=== PATIENT | male | born 2000 | race Caucasian/White ===

== ENCOUNTER 2024-09-25 07:07 | Day surgery (SDC) | payer OTHER ==
[~2024-09-25] VITALS: Ht 185.4 cm; Wt 92.4 kg
[~2024-09-25 07:07] MED LIST: IBUP200C25 PO
[2024-09-25] MEDS ORDERED: LR 1,000 ML IV SCH (07:35)
[2024-09-25] MEDS ORDERED: ACETAMINOPHEN 1000MG/100ML IV BAG As Ordered ONE (08:14)
[2024-09-25] MEDS ORDERED: ROCURONIUM BROMIDE 50MG/5ML VIAL As Ordered ONE (08:14)
[2024-09-25] MEDS ORDERED: dexAMETHasone 4 MG/ML 1 ML VIAL As Ordered ONE (08:14)
[2024-09-25] MEDS ORDERED: LIDOCAINE 2% 100 MG/5 ML SDV (FOR ANES.) As Ordered ONE (08:14)
[2024-09-25] MEDS ORDERED: KETOROLAC 30 MG/ML 1 ML VIAL As Ordered ONE (08:14)
[2024-09-25] MEDS ORDERED: ONDANSETRON 4MG 2ML VIAL As Ordered ONE (08:14)
[2024-09-25] MEDS ORDERED: MIDAZOLAM INJ 2 MG/2 ML VIAL As Ordered ONE (08:19)
[2024-09-25] MEDS: ceFAZolin SOD 2 GM IV ONCE IV ONE (09:29)
[2024-09-25] MEDS ORDERED: HYDROmorphone HCL 2 MG/ML 1 ML VIAL As Ordered ONE (10:22)
[2024-09-25] MEDS ORDERED: SUGAMMADEX SODIUM 200 MG/2 ML VIAL As Ordered ONE (10:40)
[2024-09-25] MEDS: ONDANSETRON 4MG 2ML VIAL IV PRN (11:30)
[2024-09-25] MEDS: HYDROMORPHONE HCL 0.5 MG/0.5 ML SYRINGE IV PRN (11:30)
[2024-09-25 12:25] VITALS: BP 130/79; TEMP 97.3; O2SAT 100
== END 2024-09-25 12:36 | disposition home or self-care (01) ==
LOC: M SDC 07:07
PROVIDERS: ATTEND Surgery
DX: K40.90 Unilateral inguinal hernia, without obstruction or gangrene, not specified as recurrent (principal); D17.6 Benign lipomatous neoplasm of spermatic cord
CPT/HCPCS: 49650; C1781; J0131; J0665; J0690; J1100; J1171; J1885; J2250; J2405; J3010; S2900